=== PATIENT | female | born 1985 | race Caucasian/White ===

== ENCOUNTER 2017-09-13 10:35 | Emergency (ER) | payer OTHER ==
[~2017-09-13] VITALS: Ht 165.1 cm; Wt 140.6 kg
[~2017-09-13 10:35] MED LIST: TRAM50TA3
[2017-09-13 10:39] VITALS: BP 138/80
[2017-09-13] MEDS ORDERED: traMADol 50 MG TAB PO ONE (11:10)
[2017-09-13] MEDS ORDERED: prednisoLONE 15 MG/5 ML UDC PO ONE (11:10)
[2017-09-13 11:57] VITALS: BP 133/72
== END 2017-09-13 11:58 | disposition home or self-care (01) ==
LOC: MED 10:35
DX: M10.071 Idiopathic gout, right ankle and foot (principal); M19.90 Unspecified osteoarthritis, unspecified site; Z88.6 Allergy status to analgesic agent
CPT/HCPCS: 73630; 99284; J7510

== ENCOUNTER 2018-11-10 12:51 | Emergency (ER) | payer OTHER ==
[~2018-11-10] VITALS: Ht 165.1 cm; Wt 142.5 kg
[2018-11-10 12:57] VITALS: BP 123/88
[2018-11-10 14:10] LABS: BASOPHILS # (AUTO) 0.1 K/uL (0.00-0.22); BASOPHILS % (AUTO) 0.8 % (0.0-2.0); EOSINOPHILS # (AUTO) 0.2 K/uL (0-0.4); EOSINOPHILS % (AUTO) 2.3 % (0.0-4.0); HEMOGLOBIN 14.8 g/dL (12.0-16.0); LYMPHOCYTES # (AUTO) 2.6 K/uL (2.5-16.5); LYMPHOCYTES % (AUTO) 28.8 % (20.5-51.1); MEAN CORPUSCULAR HEMOGLOBIN 29 pg (27-31); MEAN CORPUSCULAR HGB CONC 33 g/dL (33-37); MEAN CORPUSCULAR VOLUME 86.9 fL (80-94); MONOCYTES # (AUTO) 0.5 K/uL (0.8-1.0); MONOCYTES % (AUTO) 5.7 % (1.7-9.3); NEUTROPHILS # (AUTO) 5.8 K/uL (1.8-7.7); NEUTROPHILS % (AUTO) 62.4 % (42.2-75.2); PLATELET COUNT (AUTO) 313 K/uL (140-450); RED BLOOD CELL COUNT(AUTO) 5.17 MIL/uL (4.20-5.40); RED CELL DISTRIBUTION WIDTH 13.4 % (11.6-13.7); WHITE BLOOD COUNT (AUTO) 9.2 K/uL (4.8-10.8)
[2018-11-10 15:17] VITALS: BP 127/85
== END 2018-11-10 15:17 | disposition home or self-care (01) ==
LOC: MED 13:12
DX: N92.0 Excessive and frequent menstruation with regular cycle (principal); Z98.890 Other specified postprocedural states; Z79.899 Other long term (current) drug therapy; Z88.6 Allergy status to analgesic agent
CPT/HCPCS: 36415; 81002; 81025; 84703; 85025; 99283

== ENCOUNTER 2019-01-19 18:05 | Emergency (ER) | payer OTHER ==
[~2019-01-19] VITALS: Ht 165.1 cm; Wt 140.2 kg
[2019-01-19 18:11] VITALS: BP 145/81
--- NOTE | 2019-01-19 18:26 | NUR ---
33/F REFERRED BY PMD FOR POSSIBLE DVT W/ C/O MEDIAL LOWER LEG MUSCLE PAIN 06/25. HX: HTN, AORTIC STENOSIS, HEART MURMUR, HTN, FIBROIDS, HIGH CHOLESTEROL. PATIENT POSITIONED FOR COMFORT; HOB ELEVATED; BEDRAILS UP X1; BED DOWN. ER MD MADE AWARE OF PT STATUS.
--- NOTE | 2019-01-19 18:32 | NUR ---
Patient being evaluated by ADITYA PEREZ at bedside.
--- NOTE | 2019-01-19 19:02 | NUR ---
Pt report given to YAYA BOLTON. Transfer of care at this time.
--- NOTE | 2019-01-19 19:07 | NUR ---
RECEIVED REPORT FROM HOANG MARTINEZ. TRANSFER OF CARE AT THIS TIME
--- NOTE | 2019-01-19 19:09 | NUR ---
ULTRASOUND AT BEDSIDE.
--- NOTE | 2019-01-19 20:04 | NUR ---
PT RESTING WITH EYES CLOSED. VISIBLE RISE AND FALL OF THE CHEST. BED LOCKED AND IN LOW POSITON. VSS. WILL CONTINUE TO MONITOR.
--- NOTE | 2019-01-19 21:12 | NUR ---
ADITYA GARZA AT PT BEDSIDE.
[2019-01-19 21:19] VITALS: BP 145/81
--- NOTE | 2019-01-19 21:22 | NUR ---
Patient discharged with v/s stable. Written and verbal after care instructions given and explained. Patient alert, oriented and verbalized understanding of instructions. Ambulatory with steady gait. All questions addressed prior to discharge. ID band removed. Patient advised to follow up with PMD. Rx of IBURPROFEN AND KEFLEX given. Patient educated on indication of medication including possible reaction and side effects. Opportunity to ask questions provided and answered.
== END 2019-01-19 21:22 | disposition home or self-care (01) ==
LOC: MED 18:05
DX: L03.116 Cellulitis of left lower limb (principal); I10 Essential (primary) hypertension; E78.00 Pure hypercholesterolemia, unspecified; Z90.49 Acquired absence of other specified parts of digestive tract; Z79.899 Other long term (current) drug therapy; Z88.6 Allergy status to analgesic agent; Z98.890 Other specified postprocedural states; Z86.79 Personal history of other diseases of the circulatory system
CPT/HCPCS: 93971; 99284; Q0092

== ENCOUNTER 2019-11-30 11:27 | Emergency (ER) | payer OTHER ==
[~2019-11-30] VITALS: Ht 165.1 cm; Wt 142.9 kg
[2019-11-30 11:52] VITALS: BP 138/91
--- NOTE | 2019-11-30 12:02 | NUR ---
34/F BIB SELF.covid tested+ 11/22/19. c/o chest tighness,sob, cough x 4 days. MED HX: AORTIC STENOSIS.
[2019-11-30 13:04] VITALS: BP 138/91
--- NOTE | 2019-11-30 13:04 | NUR ---
Patient discharged with v/s stable. Written and verbal after care instructions given and explained. Patient alert, oriented and verbalized understanding of instructions. Ambulatory with steady gait. All questions addressed prior to discharge. ID band removed. Patient advised to follow up with PMD. Rx of ALBUTEROL, AEROCHAMBER & PREDNISONE given. Patient educated on indication of medication including possible reaction and side effects. Opportunity to ask questions provided and answered.
== END 2019-11-30 13:04 | disposition home or self-care (01) ==
LOC: MED 11:27
DX: U07.1 COVID-19 (principal); J98.01 Acute bronchospasm; I35.0 Nonrheumatic aortic (valve) stenosis; I51.9 Heart disease, unspecified; I10 Essential (primary) hypertension; Z88.6 Allergy status to analgesic agent; Z98.51 Tubal ligation status; Z90.49 Acquired absence of other specified parts of digestive tract; Z98.890 Other specified postprocedural states; Z79.899 Other long term (current) drug therapy
CPT/HCPCS: 71045; 99283

== ENCOUNTER 2020-07-16 14:47 | Emergency (ER) | payer OTHER ==
[~2020-07-16] VITALS: Ht 165.1 cm; Wt 151.0 kg
[2020-07-16 14:54] VITALS: BP 140/89
[2020-07-16] MEDS: ONDANSETRON 4 MG/2 ML VIAL IVP ONE (15:57)
[2020-07-16 16:01] LABS: BASOPHILS % (AUTO) 0.3 % (0.0-2.0); EOSINOPHILS % (AUTO) 0.1 % (0.0-4.0); HEMATOCRIT 44.8 % (36-48); HEMOGLOBIN 15.2 g/dL (12.0-16.0); LYMPHOCYTES # (AUTO) 0.8 K/uL (2.5-16.5); MEAN CORPUSCULAR HEMOGLOBIN 29 pg (27-31); MEAN CORPUSCULAR HGB CONC 34 g/dL (33-37); MEAN CORPUSCULAR VOLUME 84.2 fL (80-94); MONOCYTES # (AUTO) 0.7 K/uL (0.8-1.0); MONOCYTES % (AUTO) 4.8 % (1.7-9.3); NEUTROPHILS % (AUTO) 89.8 % (42.2-75.2); PLATELET COUNT (AUTO) 301 K/uL (140-450); RED BLOOD CELL COUNT(AUTO) 5.32 MIL/uL (4.20-5.40); RED CELL DISTRIBUTION WIDTH 13.3 % (11.6-13.7); WHITE BLOOD COUNT (AUTO) 15.6 K/uL (4.8-10.8)
[2020-07-16 16:20] LABS: ALBUMIN 3.9 g/dL (3.4-5.0); ANION GAP 14.2 (8-16); CARBON DIOXIDE 23.5 mmol/L (21-32); CREATININE 0.8 mg/dL (0.6-1.3); POTASSIUM 3.7 mmol/L (3.5-5.1); TOTAL BILIRUBIN 0.6 mg/dL (0.0-1.0)
[2020-07-16] MEDS: NACL 0.9% 500 ML IV ONE ×2 (16:34→17:10)
[2020-07-16] MEDS: MORPHINE SULFATE 4 MG/ML SYR IVP ONE (16:39)
[2020-07-16 16:41] LABS: THYROID STIMULATING HORMONE 0.97 uIU/mL (0.34-3.74)
[2020-07-16] MEDS: ACETAMINOPHEN 325 MG TAB PO ONE (16:56)
[2020-07-16] MEDS ORDERED: ONDA-24 PO (18:37)
[2020-07-16 18:45] VITALS: BP 140/89
== END 2020-07-16 18:45 | disposition home or self-care (01) ==
LOC: MED 14:47
DX: R10.9 Unspecified abdominal pain (principal); Z20.822 Contact with and (suspected) exposure to COVID-19; R51.9 Headache, unspecified; M79.10 Myalgia, unspecified site; R07.9 Chest pain, unspecified; I10 Essential (primary) hypertension; Z88.6 Allergy status to analgesic agent; Z79.899 Other long term (current) drug therapy
CPT/HCPCS: 71045; 74176; 80053; 83690; 83880; 84443; 84484; 84702; 85025; 87426; 93005; 96361; 96374; 99285; J2405; J7030; J2270

== ENCOUNTER 2021-07-10 10:42 | Emergency (ER) | payer OTHER ==
[~2021-07-10] VITALS: Ht 165.1 cm; Wt 154.4 kg
[~2021-07-10 10:42] MED LIST changes: +ONDA-188 PO
[2021-07-10 10:48] VITALS: BP 150/93
--- NOTE | 2021-07-10 11:02 | NUR ---
PT AMB TO BED 8
--- NOTE | 2021-07-10 11:11 | NUR ---
Dr. Mane at bedside evaluating patient.
[2021-07-10] MEDS ORDERED: IBUPROFEN 600 MG TAB PO ONE (11:20)
[2021-07-10] MEDS ORDERED: HYDROcodone/APAP 5/325 MG 1 TAB TAB PO ONE (11:20)
--- NOTE | 2021-07-10 11:33 | NUR ---
Patient taken via [facility] for CT.
--- NOTE | 2021-07-10 12:00 | NUR ---
Patient returned from CT
[2021-07-10 12:40] VITALS: BP 112/69
--- NOTE | 2021-07-10 13:56 | NUR ---
Dr. Mane re-assessing patient at bedside.
[2021-07-10] MEDS ORDERED: ACET-9529 PO (13:58)
--- NOTE | 2021-07-10 14:14 | NUR ---
Patient discharged with v/s stable. Written and verbal after care instructions given. Patient alert, oriented and verbalized understanding of instructions. Ambulatory with steady gait. All questions addressed prior to discharge. ID band removed. Patient advised to follow up with PMD. Rx of Hydrocodone/Acetaminophen given. Opportunity to ask questions provided and answered.
--- NOTE | 2021-07-10 14:15 | NUR ---
Chart checked and completed. The patient's care was reviewed and supervised by Zenaida Arroyo RN.
== END 2021-07-10 14:13 | disposition home or self-care (01) ==
LOC: MED 10:42
DX: M47.816 Spondylosis without myelopathy or radiculopathy, lumbar region (principal); M46.1 Sacroiliitis, not elsewhere classified; M25.552 Pain in left hip; I10 Essential (primary) hypertension; M19.90 Unspecified osteoarthritis, unspecified site; E78.5 Hyperlipidemia, unspecified; Z90.49 Acquired absence of other specified parts of digestive tract; Z98.51 Tubal ligation status; Z79.891 Long term (current) use of opiate analgesic; Z79.899 Other long term (current) drug therapy; Z88.6 Allergy status to analgesic agent
CPT/HCPCS: 72131; 72192; 81002; 81025; 99284

== ENCOUNTER 2022-03-05 12:50 | Emergency (ER) | payer OTHER ==
[~2022-03-05] VITALS: Ht 165.1 cm; Wt 143.8 kg
[~2022-03-05 12:50] MED LIST changes: +ACET-9529 PO
[2022-03-05 13:00] VITALS: BP 141/77
--- NOTE | 2022-03-05 13:03 | NUR ---
PT AMBULATED TO LOBBY. URINE COLLECTED.
--- NOTE | 2022-03-05 13:30 | NUR ---
36/F WALKED IN C/O RIGHT FLANK PAIN RADIATING TO RIGHT ABD ONSET 1WK. DENIES DYSURIA OR HEMATURIA. AAO4, AMBULATORY, VITALS STABLE PMH: CHOLECYSTECTOMY, HEART MURMUR, ATHEROSCLEROSIS OF AORTA
--- NOTE | 2022-03-05 15:18 | NUR ---
PT AMBBULATED TO ER BED 6
[2022-03-05] MEDS ORDERED: IBUPROFEN 600 MG TAB PO ONE (15:45)
[2022-03-05 15:58] LABS: APPEARANCE,URINE CLEAR (CLEAR); BILIRUBIN,URINE NEGATIVE (NEGATIVE); BLOOD, URINE NEGATIVE (NEGATIVE); COLOR,URINE YELLOW (YELLOW); LEUKOCYTE ESTERASE ,URINE NEGATIVE (NEGATIVE); NITRITE, URINE NEGATIVE (NEGATIVE); UGLUCOSE NEGATIVE (NEGATIVE)
--- NOTE | 2022-03-05 16:07 | NUR ---
PT TAKEN TO CT VIA [facility]
[2022-03-05 17:00] LABS: BASOPHILS # (AUTO) 0.1 K/uL (0.00-0.22); BASOPHILS % (AUTO) 0.9 % (0.0-2.0); EOSINOPHILS # (AUTO) 0.3 K/uL (0-0.4); EOSINOPHILS % (AUTO) 3.1 % (0.0-4.0); HEMATOCRIT 41.1 % (36-48); HEMOGLOBIN 13.7 g/dL (12.0-16.0); LYMPHOCYTES # (AUTO) 2.8 K/uL (2.5-16.5); LYMPHOCYTES % (AUTO) 34.1 % (20.5-51.1); MEAN CORPUSCULAR HEMOGLOBIN 28 pg (27-31); MEAN CORPUSCULAR HGB CONC 33 g/dL (33-37); MEAN CORPUSCULAR VOLUME 84.6 fL (80-94); MONOCYTES # (AUTO) 0.5 K/uL (0.8-1.0); MONOCYTES % (AUTO) 6.4 % (1.7-9.3); NEUTROPHILS # (AUTO) 4.5 K/uL (1.8-7.7); NEUTROPHILS % (AUTO) 55.5 % (42.2-75.2); PLATELET COUNT (AUTO) 310 K/uL (140-450); RED BLOOD CELL COUNT(AUTO) 4.86 MIL/uL (4.20-5.40); WHITE BLOOD COUNT (AUTO) 8.1 K/uL (4.8-10.8)
[2022-03-05 17:26] LABS: ALBUMIN 4.3 g/dL (3.4-5.0); ANION GAP 13.9 (8-16); CREATININE 0.7 mg/dL (0.6-1.3); POTASSIUM 3.9 mmol/L (3.5-5.1); TOTAL BILIRUBIN 0.4 mg/dL (0.0-1.0)
[2022-03-05] MEDS ORDERED: ACET-8905 PO (17:56)
[2022-03-05 18:18] VITALS: BP 113/81
--- NOTE | 2022-03-05 18:18 | NUR ---
Patient discharged with v/s stable. Written and verbal after care instructions about flank pain given and explained. Patient alert, oriented and verbalized understanding of instructions. Ambulatory with steady gait. All questions addressed prior to discharge. ID band removed. Patient advised to follow up with PMD. Rx of Hydrocodone/Acetaminophen given. Patient educated on indication of medication including possible reaction and side effects. Opportunity to ask questions provided and answered.
== END 2022-03-05 18:18 | disposition home or self-care (01) ==
LOC: MED 12:50
DX: R10.11 Right upper quadrant pain (principal); I25.10 Atherosclerotic heart disease of native coronary artery without angina pectoris; I10 Essential (primary) hypertension; Z79.899 Other long term (current) drug therapy; Z79.82 Long term (current) use of aspirin; Z90.49 Acquired absence of other specified parts of digestive tract
CPT/HCPCS: 36415; 80053; 81003; 81025; 83690; 85025; 99284